=== PATIENT | female | born 1985 | race Caucasian/White ===

== ENCOUNTER 2016-08-22 10:07 | Emergency (ER) | payer BC, MEDICAID ==
[2016-08-22] MEDS ORDERED: Sodium Chloride 0.9% 1,000 ML IV ONE (10:45)
[2016-08-22] MEDS ORDERED: Sodium Chloride 0.9% 10 ML Syringe FLUSH PRN (10:46)
--- NOTE | 2016-08-22 10:52 | EDM.PDOC ---
ED HPI GENERAL MEDICAL PROBLEM - General Chief Complaint: General Stated Complaint: DIZZY SHAKEY Time Seen by Provider: 08/22/16 10:30 Source of Information: Reports: Patient History Limitations: Reports: No limitations - History of Present Illness INITIAL COMMENTS - FREE TEXT/NARRATIVE: c/o not feeling well x 1d no specific sxs, feels dizzy at times, has felt like she would faint when sitting up and would lay back down, no f/c/d, slight rhinorrhea, no cough, no c/ d, has had flu vax at 6 months gestation, lives alone, not working, has another child who spends part of the time with his father, here with her mother EDC 11-16-16, last saw Dr Apple 1w ago, next apt 08-30-16, u/s last wk showed a healthy male fetus did have pain on her L side earlier that she thought was round ligament pain, no pain now fetus active, no vaginal d/c, no dysuria - Related Data Allergies Allergy/AdvReac Type Severity Reaction Status Date / Time Penicillins Allergy Other Verified 08/22/16 10:34 Home Meds: Home Meds Pnv With Ca,No.72/Iron,Carb/FA [ Plus Iron Tablet] 1 each PO DAILY 09/30 [History] Ranitidine [Zantac] 150 mg PO DAILY PRN 09/30/14 [History] Ibuprofen 600 mg PO Q6H PRN #60 tablet 10/01/14 [Rx] Social & Family History - Tobacco Use Smoking Status *Q: Never Smoker - Alcohol Use Days Per Week of Alcohol Use: 0 - Recreational Drug Use Recreational Drug Use: No ED ROS GENERAL - Review of Systems Review Of Systems: See Below Constitutional: Reports: weakness HEENT: Reports: Rhinitis Respiratory: Reports: no symptoms Cardiovascular: Reports: No symptoms Endocrine: Reports: no symptoms GI/Abdominal: Reports: Abdominal pain : Reports: no symptoms Musculoskeletal: Reports: no symptoms Skin: Reports: no symptoms Neurological: Reports: dizziness Psychiatric: Reports: No symptoms Hematologic/Lymphatic: Reports: no symptoms Immunologic: Reports: no symptoms ED EXAM, GENERAL - Physical Exam Exam: See Below Exam Limited By: No limitations General Appearance: alert, WD/WN, no apparent distress, other (gravid, moves easily, nl speech, did have hand on L flank when I walked in room, nontoxic, nonill) Eye Exam: bilateral eye: normal inspection Nose: normal inspection, normal mucosa, no blood Throat/Mouth: Normal inspection, Normal lips, Normal teeth, Normal gums, Normal oropharynx, Normal voice, No airway compromise Head: atraumatic, normocephalic Neck: normal inspection, supple, non-tender, full range of motion Respiratory/Chest: no respiratory distress, lungs clear, normal breath sounds, no accessory muscle use, chest non-tender Cardiovascular: normal peripheral pulses, regular rate, rhythm, no edema, no gallop, no rub, other (2/6 DENIA at LSB) GI/Abdominal: normal bowel sounds, soft, non tender, other (gravid, no PT, no tightness of uterus) Psychiatric: normal affect, normal mood Skin Exam: Warm, Dry, Intact, Normal color, No rash Lymphatic: no adenopathy Course - Vital Signs Last Recorded V/S: Last Vital Signs Temp 36.8 C 08/22/16 10:10 Pulse 87 08/22/16 10:10 Resp 18 08/22/16 10:10 BP 121/69 08/22/16 10:10 Pulse Ox 100 08/22/16 10:10 Orthostatic Blood Pressure [ 118/64 Sitting] Orthostatic Blood Pressure [ 109/69 Standing] Orthostatic Blood Pressure [ 87/48 Supine] - Orders/Labs/Meds Orders: Active Orders 24 hr Category Date Time Status Orthostatic Vital Signs [RC] ASDIRECTED Care 08/22/16 10:46 Active Sodium Chloride 0.9% [Saline Flush] Med 08/22/16 10:46 Active 10 ml FLUSH ASDIRECTED PRN Saline Lock Insert [OM.PC] Routine Oth 08/22/16 10:46 Ordered Medication Orders Sodium Chloride (Saline Flush) 10 ml FLUSH ASDIRECTED PRN PRN Reason: Keep Vein Open Labs: Laboratory Tests 08/22/16 08/22/16 08/22/16 Range/Units 10:50 10:50 10:55 WBC 6.9 (4.5-12.0) X10-3/uL RBC 3.71 (3.23-5.20) x10(6)uL Hgb 11.6 (11.5-15.5) g/dL Hct 34.3 (30.0-51.3) % MCV 92.6 (80-96) fL MCH 31.3 (27.7-33.6) pg MCHC 33.8 (32.2-35.4) g/dL RDW 13.1 (11.5-15.5) % Plt Count 138 (125-369) X10(3)uL MPV 8.8 (7.4-10.4) fL Neut % (Auto) 72.6 (46-82) % Lymph % (Auto) 21.1 (13-37) % [place] % (Auto) 4.5 (4-12) % Eos % (Auto) 2 (1.0-5.0) % Baso % (Auto) 0 (0-2) % Neut # 5.0 (1.6-8.3) # Lymph # 1.5 (0.6-5.0) # Lawrence # 0.3 (0.0-1.3) # Eos # 0.1 (0.0-0.8) # Baso # 0.0 (0.0-0.2) # Sodium 134 L (135-145) mmol/L Potassium 3.7 (3.5-5.3) mmol/L Chloride 104 (100-110) mmol/L Carbon Dioxide 20 L (23-29) mmol/L BUN 5 (5-20) mg/dL Creatinine 0.4 L (0.6-1.3) mg/dL Est Cr Clr Drug Dosing TNP Estimated GFR (MDRD) > 60 (>60) BUN/Creatinine Ratio 12.5 (9-20) Glucose 89 (80-116) mg/dL Calcium 8.5 L (8.6-10.2) mg/dL Total Bilirubin 0.2 (0.1-1.3) mg/dL AST 20 (5-27) IU/L ALT 17 (14-26) IU/L Alkaline Phosphatase 41 L (56-112) IU/L C-Reactive Protein 0.5 (0.0-1.0) mg/dL Total Protein 6.3 (6.0-8.0) g/dL Albumin 3.4 L (3.5-5.2) g/dL Globulin 2.9 g/dL Albumin/Globulin Ratio 1.2 Urine Color Yellow (YELLOW) Urine Appearance Clear (CLEAR) Urine pH 6.0 (5.0-6.5) Ur Specific [place] 1.015 (1.010-1.025) Urine Protein Negative (NEGATIVE) mg/dL Urine Glucose (UA) Normal (NEGATIVE) mg/dL Urine Ketones Negative (NEGATIVE) mg/dL Urine Occult Blood Negative (NEGATIVE) Urine Nitrite Negative (NEGATIVE) Urine Bilirubin Negative (NEGATIVE) Urine Urobilinogen Normal (NEGATIVE) mg/dL Ur Leukocyte Esterase Negative (NEGATIVE) Urine RBC Not seen (0) Urine WBC 0-5 (0) Ur Squamous Epith Cells Occasional (NS,R,O) Urine Bacteria Few H (NS) Urine Mucus Few H (NS) Meds: Medications Generic Name Dose Route Start Last Admin Trade Name Freq PRN Reason Stop Dose Admin Sodium Chloride 10 ml 08/22/16 10:46 Saline Flush FLUSH ASDIRECTED PRN Keep Vein Open Discontinued Medications Generic Name Dose Route Start Last Admin Trade Name Freq PRN Reason Stop Dose Admin Sodium Chloride 1,000 mls @ 999 mls/hr 08/22/16 10:45 08/22/16 11:08 Normal Saline IV 08/22/16 11:45 999 mls/hr .BOLUS ONE Administration - Re-Assessments/Exams Free Text/Narrative Re-Assessment/Exam: 08/22/16 12:13 1 liter NS given, pt feeling a little better, orthostatics done with no change in HR, however BP was normal sitting and lower both standing and supine, no localizing sxs altho may have a mild case of the flu without a fever even though she has had the flu vax Departure - Departure Time of Disposition: 12:14 Disposition: Home, Self-Care 01 Condition: good Clinical Impression: Viral syndrome, Orthostasis, Vasomotor instability Forms: ED Department Discharge Additional Instructions: Rest. Increase fluids. Be sure to sit or lay down right away if you are feeling lightheaded or dizzy. See Dr Apple in 4 days. Return to ED if you are feeling worse. May use acetaminophen 325 mg 2 tabs every 4 hours for pain or fever. Call your Physician or Return to Emergency Department if: * Your condition worsens in any way. * You develop fever greater than 100.4. * You have vomitting that does not stop with medications. * You have pain that is not controlled with medications. - My Orders Last 24 Hours: My Active Orders 08/22/16 10:46 Orthostatic Vital Signs [RC] ASDIRECTED Sodium Chloride 0.9% [Saline Flush] 10 ml FLUSH ASDIRECTED PRN Saline Lock Insert [OM.PC] Routine - Assessment/Plan Last 24 Hours: My Active Orders 08/22/16 10:46 Orthostatic Vital Signs [RC] ASDIRECTED Sodium Chloride 0.9% [Saline Flush] 10 ml FLUSH ASDIRECTED PRN Saline Lock Insert [OM.PC] Routine
[2016-08-22 12:34] VITALS: BP 111/68
== END 2016-08-22 12:31 | disposition home or self-care (01) ==
LOC: FB.ED 10:07
DX: R55 Syncope and collapse (principal); B34.9 Viral infection, unspecified; Z88.0 Allergy status to penicillin
CPT/HCPCS: 36415; 80053; 81001; 85025; 86140; 96360; 99284; J7040

== ENCOUNTER 2016-12-06 07:32 | Inpatient (IN) | payer MEDICAID ==
[2016-12-06] MEDS ORDERED: Oxytocin/Normal Saline 10 UNIT/1,000 ML BAG IV SCH (08:15)
[2016-12-06] MEDS ORDERED: Lactated Ringers 1,000 ML IV SCH (08:15)
[2016-12-06] MEDS: Sodium Chloride 0.9% 10 ML Syringe FLUSH PRN (08:28)
--- NOTE | 2016-12-06 12:36 | PCM.SN ---
- Free Text/Narrative Note: S-Patient having contractions and she feels them but they're not uncomfortable. O-/-2 The heart was reactive Assessment induction Plan-artificial rupture of membranes with clear fluids. Vaginal delivery anticipated.
[2016-12-06] MEDS ORDERED: Scopolamine 1.5 MG Transdermal Patch TOP ONE (13:55)
[2016-12-06] MEDS ORDERED: fentaNYL 100 MCG/2 ML SDV ONE (13:58)
[2016-12-06] MEDS ORDERED: ePHEDrine/Normal Saline 50 MG/5 ML Syringe IV ONE (14:10)
[2016-12-06] MEDS ORDERED: Morphine PF 10 MG/10 ML SDV ONE (14:10)
[2016-12-06] MEDS ORDERED: fentaNYL 100 MCG/2 ML SDV ITHECAL ONE (14:10)
[2016-12-06] MEDS ORDERED: Famotidine 20 MG/2 ML SDV IVPUSH PRN (14:12)
[2016-12-06] MEDS ORDERED: Ondansetron 4 MG/2 ML SDV IVPUSH PRN ×2 (14:12→14:58)
[2016-12-06] MEDS ORDERED: Naloxone 0.4 MG/ML SDV IVPUSH PRN ×3 (14:12→14:53)
[2016-12-06] MEDS ORDERED: ePHEDrine 50 MG/ML SDV IVPUSH SCH (14:15)
[2016-12-06] MEDS ORDERED: Lactated Ringers 500 ML IV SCH ×2 (14:15)
[2016-12-06] MEDS ORDERED: Famotidine/Normal Saline 20 MG/50 ML BAG IV PRN (14:25)
[2016-12-06] MEDS ORDERED: ePHEDrine 50 MG/ML SDV IVPUSH PRN (14:47)
[2016-12-06] MEDS ORDERED: diphenhydrAMINE 50 MG/ML SDV IVPUSH PRN ×2 (14:53)
[2016-12-06] MEDS ORDERED: Naloxone 0.4 MG in Sodium Chloride 0.9% 100 ML IV PRN (14:53)
[2016-12-06] MEDS ORDERED: Promethazine 25 MG/ML SDV IV PRN (14:53)
[2016-12-06] MEDS ORDERED: Naltrexone 50 MG Tab PO PRN (14:53)
[2016-12-06] MEDS ORDERED: hydrOXYzine HCl 50 MG/ML SDV IM PRN ×2 (14:53)
[2016-12-06] MEDS ORDERED: Nalbuphine 10 MG/1 ML Vial IVPUSH PRN (14:53)
[2016-12-06] MEDS ORDERED: Naltrexone 50 MG Tab PO SCH (17:00)
[2016-12-06] MEDS ORDERED: Acetaminophen/Codeine 300-30 MG Tab PO PRN (18:05)
--- NOTE | 2016-12-06 18:05 | PCM.DEL ---
L & D Note - General Info Date of Service: 12/06/16 - Delivery Note Labor: spontaneous Delivery Outcome: Livebirth Delivery Mode: Spontaneous Presentation: Left Occiput Anterior (MARIAH) Nuchal Cord: None Prep: Other Anesthesia Type: Intrathecal Amniotic Fluid Description: Clear Episiotomy Type: None Laceration: none Placenta: intact Cord: 3 vessels Resuscitation Needed: No Delivery Comments (Free Text/Narrative):: Blood loss less than 500 and complications none. - Patient Data Vitals - most recent: Last Vital Signs Temp 97.8 F 12/06/16 15:05 Pulse 54 L 12/06/16 15:40 Resp 18 12/06/16 14:30 BP 98/57 L 12/06/16 15:40 Pulse Ox 100 12/06/16 15:40 Weight - most recent: 133 lb I&O - last 24 hours: Intake & Output 12/06/16 12/06/16 12/06/16 06:59 14:59 22:59 Intake Total 200 Output Total 425 Balance -225 Med Orders - Current: Current Medications Diphenhydramine HCl (Benadryl) 25 mg IVPUSH ASDIRECTED PRN PRN Reason: SEVERE EXTRAPYRAMIDAL SYMP Diphenhydramine HCl (Benadryl) 25 mg IVPUSH ASDIRECTED PRN PRN Reason: PRURITUS Ephedrine Sulfate (Ephedrine Sulfate) 5 mg IVPUSH ASDIRECTED PRN PRN Reason: HYPOTENSION Hydroxyzine HCl (Vistaril) 25 - 50 mg IM Q6H PRN PRN Reason: PRURITUS Hydroxyzine HCl (Vistaril) 25 - 50 mg IM Q4H PRN PRN Reason: N/V Lactated Ringer's (Ringers, Lactated) 1,000 mls @ 150 mls/hr IV ASDIRECTED NICANOR Last Admin: 12/06/16 08:42 Dose: 150 mls/hr Oxytocin/Sodium Chloride (Pitocin In Ns 10 Units/1,000 Ml) 10 unit in 1,000 mls @ 12 mls/hr IV TITRATE NICANOR; 2 MUNITS/MIN PRN Reason: Protocol Last Titration: 12/06/16 16:43 Dose: 7 munits/min, 42 mls/hr Lactated Ringer's (Ringers, Lactated) 500 mls @ 999 mls/hr IV .BOLUS NICANOR Naloxone HCl 0.4 mg/ Sodium (Chloride) 101 mls @ 25 mls/hr IV ASDIRECTED PRN PRN Reason: RESPIRATORY STATUS Miscellaneous Information (Remove Patch) 1 ea TRDERM ONETIME ONE Stop: 12/07/16 14:01 Nalbuphine HCl (Nubain) 10 mg IVPUSH Q1H PRN PRN Reason: PRURITUS Naloxone HCl (Narcan) 0.1 mg IVPUSH ASDIRECTED PRN PRN Reason: RESPIRATROY STATUS Naloxone HCl (Narcan) 0.2 mg IVPUSH ASDIRECTED PRN PRN Reason: REVERSAL Naltrexone HCl (Naltrexone) 50 mg PO ONETIME NICANOR Naltrexone HCl (Naltrexone) 50 mg PO ASDIRECTED PRN PRN Reason: REVERSAL Ondansetron HCl (Zofran) 4 mg IVPUSH Q6H PRN PRN Reason: N/V Promethazine HCl (Phenergan) 0 mg IV Q4H PRN PRN Reason: N/V Sodium Chloride (Saline Flush) 10 ml FLUSH ASDIRECTED PRN PRN Reason: Keep Vein Open Last Admin: 12/06/16 08:28 Dose: 10 ml Discontinued Medications Ephedrine Sulfate (Ephedrine Sulfate) 5 mg IVPUSH Q5M [facility] Fentanyl (Sublimaze) Confirm Administered Dose 100 mcg .ROUTE .STK-MED ONE Stop: 12/06/16 13:59 Naloxone HCl (Narcan) 0.1 mg IVPUSH .SEECOMMENT PRN PRN Reason: Respiratory Depression Stop: 12/06/16 14:13 Scopolamine (Transderm-Scop) 1.5 mg TOP ONETIME ONE Stop: 12/06/16 13:56 Last Admin: 12/06/16 14:10 Dose: 1.5 mg - Problem List & Annotations (1) Vaginal delivery SNOMED Code(s): 270967673 Code(s): O80 - ENCOUNTER FOR FULL-TERM UNCOMPLICATED DELIVERY Status: Acute Current Visit: Yes - Problem List Review Problem List Initiated/Reviewed/Updated: Yes - My Orders Last 24 Hours: My Active Orders 12/06/16 07:38 Sodium Chloride 0.9% [Saline Flush] 10 ml FLUSH ASDIRECTED PRN Resuscitation Status Routine 12/06/16 07:39 Patient Status [ADT] Routine Communication Order [RC] ASDIRECTED Notify Provider [RC] PRN Vital Signs [RC] PER UNIT ROUTINE Saline Lock Insert [OM.PC] Routine 12/06/16 07:40 Notify Provider Vital Signs [RC] PRN 12/06/16 07:45 Electronic Heart Tones Ext w TOCO [WOMSER] CONTINUOUS 12/06/16 08:15 Lactated Ringers [Ringers, Lactated] 1,000 ml IV ASDIRECTED Oxytocin/Normal Saline [Pitocin in NS 10 UNITS/1,000 ML] 10 unit in 1,000 ml IV TITRATE 12/06/16 12:31 Admission Status [Patient Status] [ADT] Routine 12/06/16 14:12 Heart Rate [RC] Click to Edit Up With Assistance [RC] ASDIRECTED Verify Patient Consent Obtain [RC] ASDIRECTED Blood Pressure [OM.PC] Routine 12/06/16 14:15 Lactated Ringers [Ringers, Lactated] 500 ml IV .BOLUS - Plan Plan:: Normal routine orders. See orders.
[2016-12-06] MEDS ORDERED: Famotidine 20 MG Tab PO PRN (18:07)
[2016-12-06] MEDS: Ibuprofen 800 MG Tab PO SCH (20:36)
[2016-12-07] MEDS: ePHEDrine 50 MG/ML SDV IVPUSH PRN ×2 (01:20→01:30)
[2016-12-07] MEDS: Ibuprofen 800 MG Tab PO SCH ×3 (01:22→20:04)
[2016-12-07] MEDS: Sodium Chloride 0.9% 10 ML Syringe FLUSH PRN (01:22)
--- NOTE | 2016-12-07 08:17 | PCM.PN ---
- General Info Date of Service: 12/07/16 Admission Dx/Problem (Free Text): The patient is without complaints. States she is on very little pain. She denies fevers, chills, abdominal pain or leg swelling. - Patient Data Vitals - most recent: Last Vital Signs Temp 98.2 F 12/07/16 00:00 Pulse 50 L 12/07/16 02:24 Resp 16 12/07/16 00:00 BP 95/52 L 12/07/16 02:24 Pulse Ox 98 12/07/16 00:00 Weight - most recent: 133 lb I&O - last 24 hours: Intake & Output 12/06/16 12/07/16 12/07/16 22:59 06:59 14:59 Intake Total 3265 Balance 3265 Lab Results last 24 hrs: Laboratory Results - last 24 hr 12/06/16 12/07/16 Range/Units 21:50 06:30 Hgb 10.3 L (11.5-15.5) g/dL Hct 31.0 (30.0-51.3) % Blood Type O NEGATIVE Gel Antibody Screen Negative Rhogam Indicated Yes, baby rh pos Med Orders - Current: Current Medications Acetaminophen/Codeine Phosphate (Tylenol With Codeine No.3 300mg/30mg) 1 tab PO Q4H PRN PRN Reason: Pain (moderate 4-6) Diphenhydramine HCl (Benadryl) 25 mg IVPUSH ASDIRECTED PRN PRN Reason: SEVERE EXTRAPYRAMIDAL SYMP Last Admin: 12/06/16 20:36 Dose: 25 mg Diphenhydramine HCl (Benadryl) 25 mg IVPUSH ASDIRECTED PRN PRN Reason: PRURITUS Ephedrine Sulfate (Ephedrine Sulfate) 5 mg IVPUSH ASDIRECTED PRN PRN Reason: HYPOTENSION Last Admin: 12/07/16 01:30 Dose: 5 mg Famotidine (Pepcid) 20 mg PO DAILY PRN PRN Reason: reflux Last Admin: 12/06/16 20:36 Dose: 20 mg Hydroxyzine HCl (Vistaril) 25 - 50 mg IM Q6H PRN PRN Reason: PRURITUS Hydroxyzine HCl (Vistaril) 25 - 50 mg IM Q4H PRN PRN Reason: N/V Lactated Ringer's (Ringers, Lactated) 1,000 mls @ 150 mls/hr IV ASDIRECTED NICANOR Last Admin: 12/06/16 08:42 Dose: 150 mls/hr Oxytocin/Sodium Chloride (Pitocin In Ns 10 Units/1,000 Ml) 10 unit in 1,000 mls @ 12 mls/hr IV TITRATE NICANOR; 2 MUNITS/MIN PRN Reason: Protocol Last Titration: 12/06/16 16:43 Dose: 7 munits/min, 42 mls/hr Lactated Ringer's (Ringers, Lactated) 500 mls @ 999 mls/hr IV .BOLUS NICANOR Naloxone HCl 0.4 mg/ Sodium (Chloride) 101 mls @ 25 mls/hr IV ASDIRECTED PRN PRN Reason: RESPIRATORY STATUS Ibuprofen (Motrin) 800 mg PO Q8H NICANOR Last Admin: 12/07/16 01:22 Dose: 800 mg Miscellaneous Information (Remove Patch) 1 ea TRDERM ONETIME ONE Stop: 12/07/16 14:01 Nalbuphine HCl (Nubain) 10 mg IVPUSH Q1H PRN PRN Reason: PRURITUS Naloxone HCl (Narcan) 0.1 mg IVPUSH ASDIRECTED PRN PRN Reason: RESPIRATROY STATUS Naloxone HCl (Narcan) 0.2 mg IVPUSH ASDIRECTED PRN PRN Reason: REVERSAL Naltrexone HCl (Naltrexone) 50 mg PO ONETIME NICANOR Naltrexone HCl (Naltrexone) 50 mg PO ASDIRECTED PRN PRN Reason: REVERSAL Ondansetron HCl (Zofran) 4 mg IVPUSH Q6H PRN PRN Reason: N/V Multivit/Folic Acid/Iron (-U) 1 each PO DAILY [facility] Promethazine HCl (Phenergan) 0 mg IV Q4H PRN PRN Reason: N/V Sodium Chloride (Saline Flush) 10 ml FLUSH ASDIRECTED PRN PRN Reason: Keep Vein Open Last Admin: 12/07/16 01:22 Dose: 10 ml Discontinued Medications Ephedrine Sulfate (Ephedrine Sulfate) 5 mg IVPUSH Q5M [facility] Fentanyl (Sublimaze) Confirm Administered Dose 100 mcg .ROUTE .STK-MED ONE Stop: 12/06/16 13:59 Last Admin: 12/06/16 19:25 Dose: Not Given Naloxone HCl (Narcan) 0.1 mg IVPUSH .SEECOMMENT PRN PRN Reason: Respiratory Depression Stop: 12/06/16 14:13 Scopolamine (Transderm-Scop) 1.5 mg TOP ONETIME ONE Stop: 12/06/16 13:56 Last Admin: 12/06/16 14:10 Dose: 1.5 mg - Exam General: alert, oriented Lungs: Normal respiratory effort Abdomen: other (Fundus firm) Extremities: no edema - Problem List & Annotations (1) Vaginal delivery SNOMED Code(s): 277332203 Code(s): O80 - ENCOUNTER FOR FULL-TERM UNCOMPLICATED DELIVERY Status: Acute Current Visit: Yes - Problem List Review Problem List Initiated/Reviewed/Updated: Yes - My Orders Last 24 Hours: My Active Orders 12/06/16 07:38 Sodium Chloride 0.9% [Saline Flush] 10 ml FLUSH ASDIRECTED PRN Resuscitation Status Routine 12/06/16 07:39 Patient Status [ADT] Routine Communication Order [RC] ASDIRECTED Notify Provider [RC] PRN Vital Signs [RC] PER UNIT ROUTINE Saline Lock Insert [OM.PC] Routine 12/06/16 07:40 Notify Provider Vital Signs [RC] PRN 12/06/16 07:45 Electronic Heart Tones Ext w TOCO [WOMSER] CONTINUOUS 12/06/16 08:15 Lactated Ringers [Ringers, Lactated] 1,000 ml IV ASDIRECTED Oxytocin/Normal Saline [Pitocin in NS 10 UNITS/1,000 ML] 10 unit in 1,000 ml IV TITRATE 12/06/16 12:31 Admission Status [Patient Status] [ADT] Routine 12/06/16 14:12 Up With Assistance [RC] ASDIRECTED Verify Patient Consent Obtain [RC] ASDIRECTED Blood Pressure [OM.PC] Routine 12/06/16 14:15 Lactated Ringers [Ringers, Lactated] 500 ml IV .BOLUS 12/06/16 18:05 Patient Status [ADT] Routine May Shower [RC] ASDIRECTED Up ad [employer] [RC] ASDIRECTED Vital Signs [RC] PFP Acetaminophen/Codeine [Tylenol with Codeine No.3 300MG/30MG] 1 tab PO Q4H PRN Assess Lochia [WOMSER] Per Unit Routine Assess Uterine Involution [WOMSER] Per Unit Routine Breast Pump [WOMSER] Per Unit Routine 12/06/16 18:06 Ice Therapy [OM.PC] Per Unit Routine Perineal Care [OM.PC] Per Unit Routine Peripheral IV Discontinue [OM.PC] Routine Sitz Bath [OM.PC] Per Unit Routine 12/06/16 18:07 Famotidine [Pepcid] 20 mg PO DAILY PRN 12/06/16 18:15 Ibuprofen [Motrin] 800 mg PO Q8H 12/06/16 21:50 SCREEN [BBK] Routine RHOGAM, [RHIG WORKUP, ] [BBK] Routine 12/06/16 22:35 RH IMMUNE GLOBULIN [BBK] Routine 12/06/16 Dinner Regular Diet [DIET] 12/07/16 09:00 Vit/FA/Fe Fumarate [-U] 1 each PO DAILY - Plan Plan:: Continue current care.
[2016-12-07] MEDS: Prenatal Multivitamin with Calcium/Folic Acid/Fe Fumarate Cap PO SCH (09:29)
[2016-12-07] MEDS ORDERED: Remove SCOP Patch TRDERM ONE (14:00)
[2016-12-08] MEDS: Ibuprofen 800 MG Tab PO SCH ×2 (02:03→09:50)
--- NOTE | 2016-12-08 08:34 | PCM.PN ---
- General Info Date of Service: 12/08/16 Admission Dx/Problem (Free Text): Patient without complaints. Vaginal bleeding decreasing. No pain. She would like to take ibuprofen at home for pain. - Patient Data Vitals - most recent: Last Vital Signs Temp 98 F 12/08/16 02:00 Pulse 64 12/08/16 02:00 Resp 18 12/08/16 02:00 BP 94/53 L 12/08/16 02:00 Pulse Ox 99 12/08/16 02:00 Weight - most recent: 133 lb I&O - last 24 hours: Intake & Output 12/07/16 12/08/16 12/08/16 22:59 06:59 14:59 Intake Total 440 Balance 440 Lab Results last 24 hrs: Laboratory Results - last 24 hr 12/06/16 Range/Units 21:50 Blood Type O NEGATIVE Gel Antibody Screen Negative Screen Negative Rhogam Indicated Yes, baby rh pos Med Orders - Current: Current Medications Acetaminophen/Codeine Phosphate (Tylenol With Codeine No.3 300mg/30mg) 1 tab PO Q4H PRN PRN Reason: Pain (moderate 4-6) Diphenhydramine HCl (Benadryl) 25 mg IVPUSH ASDIRECTED PRN PRN Reason: SEVERE EXTRAPYRAMIDAL SYMP Last Admin: 12/06/16 20:36 Dose: 25 mg Diphenhydramine HCl (Benadryl) 25 mg IVPUSH ASDIRECTED PRN PRN Reason: PRURITUS Ephedrine Sulfate (Ephedrine Sulfate) 5 mg IVPUSH ASDIRECTED PRN PRN Reason: HYPOTENSION Last Admin: 12/07/16 01:30 Dose: 5 mg Famotidine (Pepcid) 20 mg PO DAILY PRN PRN Reason: reflux Last Admin: 12/06/16 20:36 Dose: 20 mg Hydroxyzine HCl (Vistaril) 25 - 50 mg IM Q6H PRN PRN Reason: PRURITUS Hydroxyzine HCl (Vistaril) 25 - 50 mg IM Q4H PRN PRN Reason: N/V Lactated Ringer's (Ringers, Lactated) 1,000 mls @ 150 mls/hr IV ASDIRECTED NICANOR Last Admin: 12/06/16 08:42 Dose: 150 mls/hr Oxytocin/Sodium Chloride (Pitocin In Ns 10 Units/1,000 Ml) 10 unit in 1,000 mls @ 12 mls/hr IV TITRATE NICANOR; 2 MUNITS/MIN PRN Reason: Protocol Last Titration: 12/06/16 16:43 Dose: 7 munits/min, 42 mls/hr Lactated Ringer's (Ringers, Lactated) 500 mls @ 999 mls/hr IV .BOLUS NICANOR Naloxone HCl 0.4 mg/ Sodium (Chloride) 101 mls @ 25 mls/hr IV ASDIRECTED PRN PRN Reason: RESPIRATORY STATUS Ibuprofen (Motrin) 800 mg PO Q8H NICANOR Last Admin: 12/08/16 02:03 Dose: 800 mg Nalbuphine HCl (Nubain) 10 mg IVPUSH Q1H PRN PRN Reason: PRURITUS Naloxone HCl (Narcan) 0.1 mg IVPUSH ASDIRECTED PRN PRN Reason: RESPIRATROY STATUS Naloxone HCl (Narcan) 0.2 mg IVPUSH ASDIRECTED PRN PRN Reason: REVERSAL Naltrexone HCl (Naltrexone) 50 mg PO ONETIME NICANOR Naltrexone HCl (Naltrexone) 50 mg PO ASDIRECTED PRN PRN Reason: REVERSAL Ondansetron HCl (Zofran) 4 mg IVPUSH Q6H PRN PRN Reason: N/V Multivit/Folic Acid/Iron (-U) 1 each PO DAILY [facility] Last Admin: 12/07/16 09:29 Dose: 1 each Promethazine HCl (Phenergan) 0 mg IV Q4H PRN PRN Reason: N/V Sodium Chloride (Saline Flush) 10 ml FLUSH ASDIRECTED PRN PRN Reason: Keep Vein Open Last Admin: 12/07/16 01:22 Dose: 10 ml Discontinued Medications Ephedrine Sulfate (Ephedrine Sulfate) 5 mg IVPUSH Q5M [facility] Fentanyl (Sublimaze) Confirm Administered Dose 100 mcg .ROUTE .STK-MED ONE Stop: 12/06/16 13:59 Last Admin: 12/06/16 19:25 Dose: Not Given Miscellaneous Information (Remove Patch) 1 ea TRDERM ONETIME ONE Stop: 12/07/16 14:01 Last Admin: 12/07/16 15:00 Dose: 1 ea Naloxone HCl (Narcan) 0.1 mg IVPUSH .SEECOMMENT PRN PRN Reason: Respiratory Depression Stop: 12/06/16 14:13 Scopolamine (Transderm-Scop) 1.5 mg TOP ONETIME ONE Stop: 12/06/16 13:56 Last Admin: 12/06/16 14:10 Dose: 1.5 mg - Exam Quality Assessment: skin breakdown General: oriented Neck: supple Lungs: Normal respiratory effort Abdomen: soft, no tenderness, other (Fundus firm) Extremities: no edema - Problem List & Annotations (1) Vaginal delivery SNOMED Code(s): 827472786 Code(s): O80 - ENCOUNTER FOR FULL-TERM UNCOMPLICATED DELIVERY Status: Acute Current Visit: Yes - Problem List Review Problem List Initiated/Reviewed/Updated: Yes - My Orders Last 24 Hours: My Active Orders 12/07/16 09:00 Vit/FA/Fe Fumarate [-U] 1 each PO DAILY - Plan Plan:: Discharge to home. Recheck in 6 weeks for check
[2016-12-08 08:39] VITALS: BP 102/63
--- NOTE | 2016-12-08 08:39 | PCM.DCSUM1 ---
Discharge Summary - Hospital Course Free Text/Narrative:: Hospital course-after delivery the patient did well. On day #2 hemoglobin was above 10 and patient was given RhoGAM because she is Rh- and the baby was Rh+. She required no Tylenol 3 but use ibuprofen for discomfort. Vaginal bleeding was decreasing nicely. She had no complications or problems. Brief History: 31-year-old 40 weeks comes in for induction. Group B negative. Delivers a healthy male child vaginally without any complications. See delivery note. - Discharge Data Discharge Date: 12/08/16 Discharge Disposition: Home, Self-Care 01 Condition: Good - Discharge Diagnosis/Problem(s) (1) Vaginal delivery SNOMED Code(s): 286452348 ICD Code: O80 - ENCOUNTER FOR FULL-TERM UNCOMPLICATED DELIVERY Status: Acute Current Visit: Yes - Patient Instructions Diet: Regular Diet as Tolerated Activity: As Tolerated Driving: May Drive Today Showering/Bathing: May Shower Notify Provider of: Fever, Increased Pain, Swelling and Redness, Drainage, Nausea and/or Vomiting Other/Special Instructions: 1. Recheck in 6 weeks for check. 2. Ibuprofen [id number] 200 mg. She is to combine 3 pills which equals 600 mg every 6 hours p.m. for pain. - Discharge Plan Home Medications: Home Meds Pnv With Ca,No.72/Iron,Carb/FA [ Plus Iron Tablet] 1 each PO DAILY 09/30 [History] Patient Handouts: Shaken Baby Syndrome, Infant Acne, Well Audit Intern - 1 Month Old, Rooming-In With Your [place], Colic, [id number], Depression and Baby Blues, Baby Safe Sleeping Information, CPR, , Circumcision, Infant, Care After, [id number], Constipation, , [place] Baby Care, Thrush, Infant, [id number], Diarrhea, Infant, Rear-Facing Infant-Only Child Safety Seat, Gastroesophageal Reflux, , Tank As[employer]er Guidelines - Discharge Summary/Plan Comment DC Time >30 min.: No - Patient Data Vitals - Most Recent: Last Vital Signs Temp 98 F 12/08/16 02:00 Pulse 64 12/08/16 02:00 Resp 18 12/08/16 02:00 BP 94/53 L 12/08/16 02:00 Pulse Ox 99 12/08/16 02:00 Weight - Most Recent: 133 lb I&O - Last 24 hours: Intake & Output 12/07/16 12/08/16 12/08/16 22:59 06:59 14:59 Intake Total 440 Balance 440 Lab Results - Last 24 hrs: Laboratory Results - last 24 hr 12/06/16 Range/Units 21:50 Blood Type O NEGATIVE Gel Antibody Screen Negative Screen Negative Rhogam Indicated Yes, baby rh pos Med Orders - Current: Current Medications Acetaminophen/Codeine Phosphate (Tylenol With Codeine No.3 300mg/30mg) 1 tab PO Q4H PRN PRN Reason: Pain (moderate 4-6) Diphenhydramine HCl (Benadryl) 25 mg IVPUSH ASDIRECTED PRN PRN Reason: SEVERE EXTRAPYRAMIDAL SYMP Last Admin: 12/06/16 20:36 Dose: 25 mg Diphenhydramine HCl (Benadryl) 25 mg IVPUSH ASDIRECTED PRN PRN Reason: PRURITUS Ephedrine Sulfate (Ephedrine Sulfate) 5 mg IVPUSH ASDIRECTED PRN PRN Reason: HYPOTENSION Last Admin: 12/07/16 01:30 Dose: 5 mg Famotidine (Pepcid) 20 mg PO DAILY PRN PRN Reason: reflux Last Admin: 12/06/16 20:36 Dose: 20 mg Hydroxyzine HCl (Vistaril) 25 - 50 mg IM Q6H PRN PRN Reason: PRURITUS Hydroxyzine HCl (Vistaril) 25 - 50 mg IM Q4H PRN PRN Reason: N/V Lactated Ringer's (Ringers, Lactated) 1,000 mls @ 150 mls/hr IV ASDIRECTED NICANOR Last Admin: 12/06/16 08:42 Dose: 150 mls/hr Oxytocin/Sodium Chloride (Pitocin In Ns 10 Units/1,000 Ml) 10 unit in 1,000 mls @ 12 mls/hr IV TITRATE NICANOR; 2 MUNITS/MIN PRN Reason: Protocol Last Titration: 12/06/16 16:43 Dose: 7 munits/min, 42 mls/hr Lactated Ringer's (Ringers, Lactated) 500 mls @ 999 mls/hr IV .BOLUS NICANOR Naloxone HCl 0.4 mg/ Sodium (Chloride) 101 mls @ 25 mls/hr IV ASDIRECTED PRN PRN Reason: RESPIRATORY STATUS Ibuprofen (Motrin) 800 mg PO Q8H NICANRO Last Admin: 12/08/16 02:03 Dose: 800 mg Nalbuphine HCl (Nubain) 10 mg IVPUSH Q1H PRN PRN Reason: PRURITUS Naloxone HCl (Narcan) 0.1 mg IVPUSH ASDIRECTED PRN PRN Reason: RESPIRATROY STATUS Naloxone HCl (Narcan) 0.2 mg IVPUSH ASDIRECTED PRN PRN Reason: REVERSAL Naltrexone HCl (Naltrexone) 50 mg PO ONETIME NICANOR Naltrexone HCl (Naltrexone) 50 mg PO ASDIRECTED PRN PRN Reason: REVERSAL Ondansetron HCl (Zofran) 4 mg IVPUSH Q6H PRN PRN Reason: N/V Multivit/Folic Acid/Iron (-U) 1 each PO DAILY [facility] Last Admin: 12/07/16 09:29 Dose: 1 each Promethazine HCl (Phenergan) 0 mg IV Q4H PRN PRN Reason: N/V Sodium Chloride (Saline Flush) 10 ml FLUSH ASDIRECTED PRN PRN Reason: Keep Vein Open Last Admin: 12/07/16 01:22 Dose: 10 ml Discontinued Medications Ephedrine Sulfate (Ephedrine Sulfate) 5 mg IVPUSH Q5M [facility] Fentanyl (Sublimaze) Confirm Administered Dose 100 mcg .ROUTE .STK-MED ONE Stop: 12/06/16 13:59 Last Admin: 12/06/16 19:25 Dose: Not Given Miscellaneous Information (Remove Patch) 1 ea TRDERM ONETIME ONE Stop: 12/07/16 14:01 Last Admin: 12/07/16 15:00 Dose: 1 ea Naloxone HCl (Narcan) 0.1 mg IVPUSH .SEECOMMENT PRN PRN Reason: Respiratory Depression Stop: 12/06/16 14:13 Scopolamine (Transderm-Scop) 1.5 mg TOP ONETIME ONE Stop: 12/06/16 13:56 Last Admin: 12/06/16 14:10 Dose: 1.5 mg *Q Meaningful Use (DIS) - VTE *Q VTE Criteria *Q: - Stroke *Q Stroke Criteria *Q: - AMI *Q AMI Criteria *Q:
[2016-12-08] MEDS: Prenatal Multivitamin with Calcium/Folic Acid/Fe Fumarate Cap PO SCH (09:50)
== END 2016-12-08 11:45 | disposition home or self-care (01) | DRG 775 ==
LOC: FB.OBCHECK 07:32 → FB.OB 07:33 → OBSVTOIN 12:31
PROVIDERS: ADMIT Family Medicine; ATTEND Family Medicine
PROC: 10E0XZZ Delivery of Products of Conception, External Approach (ICD-10-PCS; principal; 2016-12-06)
PROC: 10907ZC Drainage of Amniotic Fluid, Therapeutic from Products of Conception, Via Natural or Artificial Opening (ICD-10-PCS; 2016-12-06)
PROC: 3E033VJ Introduction of Other Hormone into Peripheral Vein, Percutaneous Approach (ICD-10-PCS; 2016-12-06)
PROC: 00HU33Z Insertion of Infusion Device into Spinal Canal, Percutaneous Approach (ICD-10-PCS; 2016-12-06)
DX: O36.0990 Maternal care for other rhesus isoimmunization, unspecified trimester, not applicable or unspecified (principal); Z3A.40 40 weeks gestation of pregnancy; Z37.0 Single live birth
CPT/HCPCS: 36415; 85014; 85018; 85460; 86850; 86900; 86901; A9270-GY; J1200; J2270; J2590; J2790; J3010; J7050; J7120

== ENCOUNTER 2023-01-07 19:36 | Emergency (ER) | payer SELFPAY ==
[2023-01-07] MEDS ORDERED: Prochlorperazine 10 MG Tab PO ONE (20:13)
[2023-01-07] MEDS ORDERED: Azithromycin 500 MG Tab PO ONE (20:13)
[2023-01-07 23:42] VITALS: BP 109/70; PULSE 90
== END 2023-01-07 20:34 | disposition home or self-care (01) ==
LOC: FB.ED 19:36
DX: J01.90 Acute sinusitis, unspecified (principal); Z88.0 Allergy status to penicillin
CPT/HCPCS: 99283; A9270; Q0164; 99282

== ENCOUNTER 2023-05-22 11:31 | Emergency (ER) | payer SELFPAY ==
[2023-05-22] MEDS ORDERED: Ondansetron 4 MG/2 ML SDV IVPUSH ONE (11:48)
[2023-05-22] MEDS ORDERED: Sodium Chloride 0.9% 1,000 ML IV SCH (12:00)
[2023-05-22 12:08] LABS: BASOPHILS PERCENT AUTO 0.5 % (0.2-1.5); EOSINOPHILS ABSOLUTE AUTO 0.1 x10-3/uL (0.0-0.8); EOSINOPHILS PERCENT AUTO 2.1 % (0.6-8.1); HEMATOCRIT 38.4 % (34.2-48.2); HEMOGLOBIN 13.4 g/dL (11.4-15.5); LYMPHOCYTES ABSOLUTE AUTO 1.5 x10-3/uL (1.0-4.4); LYMPHOCYTES PERCENT AUTO 27.2 % (18.4-52.1); MEAN CORPUSCULAR HEMOGLOBIN 31.7 pg (23.9-33.9); MEAN CORPUSCULAR HGB CONC 34.7 g/dL (31.9-34.8); MEAN CORPUSCULAR VOLUME 91.3 fL (76.7-100.5); MEAN PLATELET VOLUME 9.3 fL (7.1-12.4); MONOCYTES ABSOLUTE AUTO 0.4 x10-3/uL (0.3-1.0); MONOCYTES PERCENT AUTO 6.5 % (4.4-15.7); NEUTROPHILS ABSOLUTE AUTO 3.6 x10-3/uL (1.5-6.3); NEUTROPHILS PERCENT AUTO 63.7 % (30.8-76.2); PLATELET COUNT,PLT 194 x10(3)uL (151-488); RED BLOOD CELL COUNT 4.21 x10(6)uL (3.60-5.20); RED CELL DISTRIBUTION WIDTH 12.5 % (12.3-16.5); WHITE BLOOD CELL COUNT,WBC 5.7 x10-3/uL (3.0-10.3)
[2023-05-22 12:14] LABS: BLOOD UREA NITROGEN,BUN 5 mg/dL (7-18); BUN/CREATININE RATIO 5.6 (9-20); CALCIUM 9.1 mg/dL (8.6-10.2); CARBON DIOXIDE,CO2 21 mmol/L (21-32); CHLORIDE,CL 104 mmol/L (100-110); CREATININE 0.9 mg/dL (0.55-1.02); ESTIMATED GFR 84 mL/min (>60); GLUCOSE RANDOM 86 mg/dL (80-116); POTASSIUM,K 3.9 mmol/L (3.5-5.3); SODIUM,NA 138 mmol/L (135-145)
[2023-05-22 12:20] LABS: ALANINE AMINOTRANSFERASE,ALT 24 U/L (12-36); ALBUMIN 3.6 g/dL (3.5-5.2); ALKALINE PHOSPHATASE 52 IU/L (56-112); ASPARTATE AMNIOTRANSFERASE,AST 14 IU/L (5-25); BILIRUBIN TOTAL 0.4 mg/dL (0.1-1.3); PROTEIN TOTAL,TP 7.2 g/dL (6.0-8.0)
[2023-05-22] MEDS ORDERED: Iopamidol 755 Mg/ML 100 ML Bottle IV SCH (12:30)
[2023-05-22] MEDS ORDERED: Pantoprazole 40 MG Vial IVPUSH ONE (12:49)
[2023-05-22 12:54] LABS: CORONAVIRUS COVID-19 NAA NEGATIVE (NEGATIVE); INFLUENZA A NAA NEGATIVE (NEGATIVE); INFLUENZA B NAA NEGATIVE (NEGATIVE)
[2023-05-22 12:59] LABS: INR 1.04 (1.00-1.24); PROTHROMBIN TIME 10.7 sec (9.0-11.1); PTT,PARTIAL THROMBOPLSTIN TIME 27.9 SECONDS (24.4-33.2)
[2023-05-22 13:23] LABS: BILIRUBIN,URINE NEGATIVE (NEGATIVE); GLUCOSE,URINE NORMAL (NORMAL); KETONES,URINE NEGATIVE (NEGATIVE); LEUKOCYTE ESTERASE,URINE NEGATIVE (NEGATIVE); NITRITE,URINE NEGATIVE (NEGATIVE); OCCULT BLOOD,URINE NEGATIVE (NEGATIVE); PH,URINE 6.5 (5.0-6.5); PROTEIN,URINE NEGATIVE (NEGATIVE); UROBILINOGEN,URINE NORMAL (NEGATIVE)
[2023-05-22 13:26] LABS: APPEARANCE,URINE CLEAR (CLEAR); BACTERIA,URINE RARE (NS); COLOR,URINE YELLOW (YELLOW); RBC,URINE 0-5 (0-5); SQUAMOUS EPITHELIAL CELLS,UR FEW (NS,R,O); WBC,URINE 0-5 (0-5)
[2023-05-22 14:02] VITALS: BP 113/55; PULSE 52
== END 2023-05-22 13:35 | disposition home or self-care (01) ==
LOC: FB.ED 11:31
DX: K52.9 Noninfective gastroenteritis and colitis, unspecified (principal); K22.6 Gastro-esophageal laceration-hemorrhage syndrome; Z20.822 Contact with and (suspected) exposure to COVID-19; Z88.0 Allergy status to penicillin; Z79.899 Other long term (current) drug therapy
CPT/HCPCS: 0240U; 36415; 74177; 80053; 81001; 82150; 83690; 85025; 85610; 85730; 96361; 96374; 96375; 99284; C9113; J2405; J7030; Q9967